=== PATIENT | female | born 1980 | race Caucasian/White ===

== ENCOUNTER 2019-04-18 14:53 | Emergency (ER) | payer MEDICAID, SELFPAY ==
[~2019-04-18] VITALS: Ht 188 cm; Wt 117.8 kg
[2019-04-18 15:23] VITALS: BP 129/87
--- NOTE | 2019-04-18 16:23 | NUR ---
Patient/Caregiver given discharge instructions and they have confirmed that they understand the instructions. Patient ambulatory with steady gait. PT LEFT WITH ALL PERSONAL BELONGINGS.
== END 2019-04-18 16:25 | disposition home or self-care (01) ==
LOC: ED 16:00
DX: L72.3 Sebaceous cyst (principal)
CPT/HCPCS: 10160; 99284